=== PATIENT | female | born 1990 | race Caucasian/White ===

== ENCOUNTER 2023-10-12 21:45 | Inpatient (IN) ==
[2023-10-12] MEDS ORDERED: PIPERACILLIN/TAZOBACTAM 4.5 GM/100 ML BAG IV ONE (22:00)
[2023-10-12] MEDS ORDERED: VANCOMYCIN CONSULT ACTIVE PRN (22:00)
[2023-10-12] MEDS ORDERED: SODIUM CHLORIDE 0.9% 1,000 ML IV ONE (22:00)
[2023-10-12] MEDS ORDERED: VANCOMYCIN HCL 1,250 MG in SODIUM CHLORIDE 0.9% 500 ML IV ONE (22:00)
--- NOTE | 2023-10-12 22:03 | Emergency Department Note ---
History of Present Illness General Chief complaint: Infection Stated complaint: LT HAND INFECTION Time Seen by Provider: 10/12/23 21:53 History of Present Illness Maximum Pain Intensity: 5 This 32-year-old female that uses meth and smokes presents to the ER for left hand infection. Patient states yesterday she was cut by a cardboard box to the fourth digit and now the whole hand is red and swollen and painful. She cannot fully extend or bend the fourth finger. Tetanus is current. Patient denies chest pain, dyspnea, fevers, numbness, tingling. Home Medications Medication Instructions Recorded Confirmed Type No Known Home Medications 10/12/23 10/12/23 History Allergies Allergy/AdvReac Type Severity Reaction Status Date / Time No Known Allergies Allergy Verified 10/12/23 22:37 Past Med/Surg History Social History Smoking Status: Current every day smoker Tobacco Type: Cigarettes Preferred Language: Bulgarian Feels Safe at Home: Yes Review of Systems A total of 10 systems reviewed and were otherwise negative Physical Exam Vital Signs Vital Signs - 24 hr 10/12/23 21:49 10/12/23 23:45 10/12/23 23:46 Temperature 37 C Temperature Source Temporal Artery Scan Pulse Rate 118 H 100 H Pulse Rate [Apical] 99 H Pulse Rate from SpO2 Sensor Pulse Rhythm [Apical] Regular Pulse Strength [Apical] Normal Respiratory Rate 16 20 14 Respiratory Effort / Characteristics Non-Labored Spontaneous Respiratory Depth Normal Normal Respiratory Pattern Regular Blood Pressure 148/81 H Blood Pressure [Right Arm] 130/85 Blood Pressure Mean 103 Blood Pressure Mean [Right Arm] 100 Blood Pressure Position [Right Arm] Lying Pulse Oximetry 99 Oxygen Delivery Method Room Air Sepsis Recent Fever Within 48 Hours No Sepsis New/Unexplained Change in Mental Status No Sepsis Action Taken by Nursing No Action Required 10/12/23 23:49 10/13/23 00:15 10/13/23 00:16 Temperature Temperature Source Pulse Rate 93 H 103 H Pulse Rate [Apical] 91 H Pulse Rate from SpO2 Sensor Pulse Rhythm [Apical] Pulse Strength [Apical] Respiratory Rate 22 16 Respiratory Effort / Characteristics Non-Labored Spontaneous Respiratory Depth Normal Respiratory Pattern Regular Blood Pressure Blood Pressure [Right Arm] 138/96 Blood Pressure Mean Blood Pressure Mean [Right Arm] 110 Blood Pressure Position [Right Arm] Lying Pulse Oximetry 100 Oxygen Delivery Method Room Air Sepsis Recent Fever Within 48 Hours Sepsis New/Unexplained Change in Mental Status Sepsis Action Taken by Nursing 10/13/23 00:16 10/13/23 00:20 10/13/23 00:30 Temperature Temperature Source Pulse Rate 94 H 104 H Pulse Rate [Apical] Pulse Rate from SpO2 Sensor 94 H 105 H Pulse Rhythm [Apical] Pulse Strength [Apical] Respiratory Rate 20 16 Respiratory Effort / Characteristics Respiratory Depth Respiratory Pattern Blood Pressure 138/96 Blood Pressure [Right Arm] Blood Pressure Mean 109 Blood Pressure Mean [Right Arm] Blood Pressure Position [Right Arm] Pulse Oximetry 100 100 Oxygen Delivery Method Sepsis Recent Fever Within 48 Hours Sepsis New/Unexplained Change in Mental Status Sepsis Action Taken by Nursing 10/13/23 00:40 10/13/23 00:50 10/13/23 01:00 Temperature Temperature Source Pulse Rate 96 H 99 H 103 H Pulse Rate [Apical] Pulse Rate from SpO2 Sensor 97 H 98 H 104 H Pulse Rhythm [Apical] Pulse Strength [Apical] Respiratory Rate 18 19 19 Respiratory Effort / Characteristics Respiratory Depth Respiratory Pattern Blood Pressure 141/94 H Blood Pressure [Right Arm] Blood Pressure Mean 109 Blood Pressure Mean [Right Arm] Blood Pressure Position [Right Arm] Pulse Oximetry 100 100 100 Oxygen Delivery Method Sepsis Recent Fever Within 48 Hours Sepsis New/Unexplained Change in Mental Status Sepsis Action Taken by Nursing 10/13/23 01:05 10/13/23 01:05 10/13/23 01:10 Temperature Temperature Source Pulse Rate 103 H 101 H Pulse Rate [Apical] Pulse Rate from SpO2 Sensor 102 H 100 H Pulse Rhythm [Apical] Pulse Strength [Apical] Respiratory Rate 16 16 Respiratory Effort / Characteristics Respiratory Depth Respiratory Pattern Blood Pressure 141/94 H Blood Pressure [Right Arm] Blood Pressure Mean 107 Blood Pressure Mean [Right Arm] Blood Pressure Position [Right Arm] Pulse Oximetry 100 100 Oxygen Delivery Method Sepsis Recent Fever Within 48 Hours Sepsis New/Unexplained Change in Mental Status Sepsis Action Taken by Nursing 10/13/23 01:20 10/13/23 01:30 10/13/23 01:40 Temperature Temperature Source Pulse Rate 100 H 104 H 106 H Pulse Rate [Apical] Pulse Rate from SpO2 Sensor 101 H 103 H 107 H Pulse Rhythm [Apical] Pulse Strength [Apical] Respiratory Rate 17 19 18 Respiratory Effort / Characteristics Respiratory Depth Respiratory Pattern Blood Pressure Blood Pressure [Right Arm] Blood Pressure Mean Blood Pressure Mean [Right Arm] Blood Pressure Position [Right Arm] Pulse Oximetry 100 100 99 Oxygen Delivery Method Sepsis Recent Fever Within 48 Hours Sepsis New/Unexplained Change in Mental Status Sepsis Action Taken by Nursing VITALS: Vitals are noted on the nurse's note and reviewed by myself. Vital signs stable. GENERAL: White female with tobacco odor, in no acute distress, nondiaphoretic, well-developed well-nourished. SKIN: Capillary reflex less than [address] christensen to both arms. Left hand erythematous and edematous with open abrasion to the left fourth digit wound culture taken and sent. Patient cannot fully extend the left fourth finger or bend it all the way. All of the fingers have full range of motion. No lymphangitis. HEENT: Normocephalic. PERRLA. EOMI. Nares patent. Mucous membranes moist. Neck is supple without nuchal rigidity. HEART: Regular rate and rhythm LUNGS: Clear to auscultation bilaterally without wheezes, rales or rhonchi. No retractions or accessory muscle use. ABDOMEN: Positive bowel sounds x 4. Normal tympanic percussion. Soft, nontender, without masses or organomegaly. Batista sign negative. No guarding or rebound tenderness. MUSCULOSKELETAL: No gross musculoskeletal defects. Left hand erythematous and edematous with open abrasion to the left fourth digit with wound culture taken and sent. Patient cannot fully extend the left fourth finger or bend it all the way. All of the fingers have full range of motion. No lymphangitis. NEURO: Patient was alert and oriented to person place and time. Normal sensation to light and sharp touch. No focal neurological deficits. Course Administered Medications Discontinued Medications Vancomycin HCl 1,250 mg/ (Sodium Chloride) 525 mls @ 200 mls/hr IV NOW ONE Stop: 10/13/23 00:37 Last Infusion: 10/13/23 02:55 Dose: Infused Documented By: Admin: 10/12/23 23:38 Dose: 200 mls/hr Documented By: DELICIA Sodium Chloride (Nss) 1,000 mls @ 999 mls/hr IV .Q1H1M ONE Stop: 10/12/23 23:00 Last Infusion: 10/13/23 00:14 Dose: Infused Documented By: Admin: 10/12/23 23:13 Dose: 999 mls/hr Documented By: DELICIA Nicotine (Nicotine 21 Mg/24 Hr Tdsy) 21 mg TD NOW STA Stop: 10/12/23 23:44 Last Admin: 10/12/23 23:45 Dose: 21 mg Documented By: DELICIA Medical Decision Making Medical Records Attestation: I reviewed the patient's medical records. Home Medications Current Medication List: was personally reviewed by me Laboratory Data Attestation: I reviewed the patient's lab results. 10/12/23 23:23 10/12/23 23:23 Lab Results 10/12/23 10/12/23 Range/Units 23:23 23:30 WBC 12.26 H (4.8-10.8) K/ul RBC 4.47 (4.20-5.40) M/uL Hgb 12.1 (12.0-16.0) g/dl Hct 37.1 (37.0-47.0) % MCV 83.0 (80.0-100.0) fL MCH 27.1 (25.0-34.0) pg MCHC 32.6 (32.0-36.0) g/dL RDW Std Deviation 45.4 (36.4-46.3) fL RDW Coeff of Amarilys 15.0 H (11.5-14.5) % Plt Count 226 (130-400) K/uL MPV 11.6 (9.4-12.4) fL Immature Gran % (Auto) 0.4 % Neut % (Auto) 80.3 % Lymph % (Auto) 9.5 % [place] % (Auto) 6.6 % Eos % (Auto) 2.5 % Baso % (Auto) 0.7 % Neut # (Auto) 9.84 H (1.40-6.50) K/uL Lymph # (Auto) 1.16 L (1.20-3.40) K/uL [place] # (Auto) 0.81 H (0.11-0.59) K/uL Eos # (Auto) 0.31 (0.00-0.50) K/uL Baso # (Auto) 0.09 (0.00-0.20) K/uL Immature Gran # (Auto) 0.05 (0.01-0.20) K/uL ESR 29 H (0-20) mm/hr Sodium 136 (136-145) mmol/L Potassium 3.8 (3.5-5.1) mmol/L Chloride 105 (98-107) mmol/L Carbon Dioxide 25 (21-32) mmol/L Anion Gap 6 (3-11) BUN 11 (6-23) mg/dl Creatinine 0.70 (0.6-1.2) mg/dl Est Cr Clr Drug Dosing 99.6 ml/min Est GFR ( Amer) 131.0 ml/min Est GFR (Non-Af Amer) 113.0 ml/min BUN/Creatinine Ratio 15.7 (10-20) Glucose 112 H (70-99(Fasting)) mg/dl Lactate 1.3 (0.4-2.0) mmol/L Calcium 9.1 (8.6-10.3) mg/dl Magnesium 1.9 (1.7-2.4) mg/dl Total Bilirubin 0.6 (0.2-1.0) mg/dl Direct Bilirubin 0.1 (0-0.2) mg/dl AST 14 (13-39) U/L ALT 14 (7-52) U/L Alkaline Phosphatase 86 (34-104) U/L Total Creatine Kinase 80 (26-192) U/L C-Reactive Protein 5.74 H (0-0.5) mg/dl Total Protein 6.9 (6.0-8.3) gm/dl Albumin 4.0 (3.4-5.0) gm/dl Procalcitonin < 0.05 (0-0.5) ng/ml Imaging Data Attestation: I personally reviewed and interpreted this imaging study as follows: Radiologist's Impression: Extremity Venous Study 10/12/23 22:03 Exam(s): US VENOUS LEFT UPPER EXTREMITY EXAM: US Duplex Left Upper Extremity Veins CLINICAL HISTORY: Reason for exam: pain/swelling TECHNIQUE: Real-time duplex ultrasound scan of the left upper extremity veins integrating B-mode two-dimensional vascular structure, Doppler spectral analysis, color flow Doppler imaging and compression. COMPARISON: No relevant prior studies available. FINDINGS: Deep veins: Unremarkable. No DVT in the internal jugular, subclavian, axillary, or brachial veins. The veins demonstrate normal color flow, are normally compressible, with normal phasic flow and/or augmentation response. Superficial veins: Unremarkable. No thrombus in the visualized basilic and cephalic veins. Soft tissues: No acute findings. IMPRESSION: Negative left upper extremity duplex venous ultrasound. Electronically signed by: Rayshawn Florez MD 10/13/23 02:17 AM MDM Narrative Prior records reviewed and summarized as above. Triage Nursing notes reviewed. Additional history obtained from family. The patient's history was concerning for swelling and redness of the skin. Differential diagnosis: Etiologies such as osteomyelitis, tendon infection, cellulitis, abscess, MRSA infection, DVT, necrotizing fasciitis, dermatitis, drug eruption, as well as others were entertained.. Physical examination: The physical examination was consistent with extensive cellulitis to the left hand with concerns for possible tendon infection to the fourth finger ER treatment provided: Zosyn, vancomycin, IV fluids Wound culture taken and sent by myself On reassessment the patient felt better. Diagnostics interpreted by me: EKG ordered for tachycardia EKG: Normal sinus, normal intervals, no acute ST-T changes. Impression sinus tachycardia 102 independently interpreted by myself I think arrhythmia is unlikely. EKG shows normal sinus rhythm with no interval abnormalities such as QT prolongation or WPW. There are no findings to suggest Brugada syndrome. Cardiac monitoring in the emergency department reveals no tachycardic or bradycardic dysrhythmia. Hypertrophic cardiomyopathy was considered but there are no clear historical elements pointing toward this. EKG is not suggestive. The QRS voltage is not extremely large and there are no suggestive Q waves. The labs Independently Interpreted by myself revealed leukocytosis, elevated inflammatory markers Negative lactic Blood cultures pending Finger wound culture pending Negative lactic Imaging studies: Hand x-ray with no fracture dislocation or foreign body, soft tissue swelling noted per my independent interpretation Ultrasound negative for DVT per my independent interpretation Consultation: A consultation was placed with the hospitalist. The case was discussed and diagnostics were reviewed. The patient was evaluated in the ER for further treatment. This appears to be extensive hand cellulitis with concerns of tendon involvement. Patient was started on broad-spectrum antibiotics. She has a history of IV drug abuse. Tetanus is reported as current. Medicine was consulted the case was discussed. Patient be admitted to the medical service. By the evaluation outlined above emergent etiologies such as abscess, necrotizing fasciitis, DVT, as well as others were deemed relatively unlikely. The pt informed about the findings as listed above. All questions were answered and pleased with the treatment. The chart was completed utilizing [employer] voice recognition software. Grammatical errors, random word insertions, pronoun errors, and incomplete sentences are an occassional consequence of this system due to software limitations, ambient noise, and hardware issues. Any formal questions or concerns about the content, text, or information contained within the body of this dictation should be directly addressed to the physician assistant customer service manager for clarification. Impression & Plan Cellulitis of hand, left Discharge Plan Visit Data Chief Complaint: Infection Stated Complaint: LT HAND INFECTION ED Provider: Shawn Saucedo ED Midlevel Provider: Jeniffer Zelaya Discharge Problem: Cellulitis of hand, left Patient Disposition: Admitted As Inpatient Condition: Fair Discharge Instructions Interventions: ED Discharge Assessment Last Done: 10/13/23 02:13
[2023-10-12] MEDS ORDERED: NICOTINE 21 MG/24 HR TDSY TD STA (23:43)
[2023-10-13 00:04] LABS: Basophils # (auto) 0.09 K/uL (0.00-0.20); Basophils % (auto) 0.7 %; Eosinophils # (auto) 0.31 K/uL (0.00-0.50); Eosinophils % (auto) 2.5 %; Hematocrit (blood only) 37.1 % (37.0-47.0); Hemoglobin 12.1 g/dl (12.0-16.0); Immature Granulocytes # (auto) 0.05 K/uL (0.01-0.20); Immature Granulocytes % (auto) 0.4 %; Lymphocytes # (auto) 1.16 K/uL (1.20-3.40); Lymphocytes % (auto) 9.5 %; Mean Corpuscular Hemoglobin 27.1 pg (25.0-34.0); Mean Corpuscular Hgb Conc 32.6 g/dL (32.0-36.0); Mean Platelet Volume 11.6 fL (9.4-12.4); Monocytes # (auto) 0.81 K/uL (0.11-0.59); Monocytes % (auto) 6.6 %; Neutrophils # (auto) 9.84 K/uL (1.40-6.50); Neutrophils % (auto) 80.3 %; Platelet Count 226 K/uL (130-400); RDW Standard Deviation 45.4 fL (36.4-46.3); Red Blood Count 4.47 M/uL (4.20-5.40); White Blood Count 12.26 K/ul (4.8-10.8)
[2023-10-13 00:10] LABS: BUN Creatinine Ratio 15.7 (10-20); Bilirubin Direct 0.1 mg/dl (0-0.2); Bilirubin,Total 0.6 mg/dl (0.2-1.0); C Reactive Protein 5.74 mg/dl (0-0.5); Calcium 9.1 mg/dl (8.6-10.3); Creatinine Clr Calc Pharmacy 99.6 ml/min; Magnesium 1.9 mg/dl (1.7-2.4); Potassium 3.8 mmol/L (3.5-5.1); Total Protein 6.9 gm/dl (6.0-8.3)
--- NOTE | 2023-10-13 01:45 | Emergency Department Note ---
ED Visit Note I was consulted by the Advanced Practice Provider, Elizabet Zelaya PA-C. I personally made/approved the management plan and take responsibility for the patient management. I performed a substantive portion of the visit. This includes the aspects of: -History/Physical/Personally seeing the patient -MDM -I independently interpreted the following studies:labs and radiographic studies .
--- NOTE | 2023-10-13 01:59 | History & Physical Report ---
Date of Service October 13, 2023 Assessment & Plan (1) Cellulitis of hand, left: Plan: 32-year-old female with no significant past medical history ongoing daily use of IV methamphetamines comes with left hand infection. Cellulitis of left hand Patient states use IV methamphetamines daily but denies any needlestick in that hand States had a cut from cardboard couple of days ago on the fourth digit Painful movements Empirically IV Vanco and IV Zosyn Pain control IV fluids N.p.o. for now Consult Ortho in a.m. IV drug abuse Ongoing with IV methamphetamines as per patient Needs counseling Monitor for any withdrawals DVT prophylax SCDs for now Disposition MedSur Full code History of Present Illness Chief Complaint: Left hand infection Primary Care Provider: NO PCP 32-year-old female with no significant past medical history ongoing daily use of IV methamphetamines comes with left hand infection. Patient states couple of days ago she cut from cardboard her left fourth digit and since yesterday left hand is swollen and painful. She is having painful movements of the left hand. Denies any fevers. Denies any chest pain or shortness of breath. Currently no headache. No blurred visions. No cough. Appetite is okay. No nausea vomiting. No abdominal pain. Normal bowel and bladder movements. No rash. Hemodynamics are stable. Past medical history. None Past surgical history. Denies any surgeries. Social history. Smokes 1 pack of cigarettes daily for more than 10 years. Denies alcohol. Does IV amphetamines daily Family history. Denies any family history Allergies Allergy/AdvReac Type Severity Reaction Status Date / Time No Known Allergies Allergy Verified 10/12/23 22:37 Home Medications Medication Instructions Recorded Confirmed Type No Known Home Medications 10/12/23 10/12/23 History Past Med/Surg History Social History Smoking Status: Current every day smoker Tobacco Type: Cigarettes Cigarettes Per Day: 20 cigarettes (a pack a day).; Second Hand Exposure: Yes; Do You Dip or Chew Tobacco: No; Tobacco Cessation Education Requested by Patient: No Hx Alcohol Use: No Hx Substance Use: Yes Last Used Substance: Days (ago) Last Used Substance Other:: Used methamphetamine yesterday (10/12/23). Preferred Language: Nicaraguan Communication Ability: Effective [employer] Required: No Beliefs That Will Affect Care: None Current Living Situation: Other Current Living Situation Comment: Lives with Friend. Other Information That Helps Us Care for You: No Feels Safe at Home: Declines to Answer Safety Concerns: Feels Safe At This Time Assistive Devices: Hospital Bed Review of Systems Review of Systems: All systems reviewed & are unremarkable except as noted in HPI & below Physical Exam Physical Exam: General- Not in distress Head- atraumatic Eyes- PERRL. ENT- oropharynx clear Neck- supple, no JVD. Lungs- clear to auscultation , no wheezing or crackles. Heart- regular rhythm; no murmur, no gallop. Abdomen- normal bowel sounds, soft, nontender, no distension. Extremities- left hand is swollena nd erythematous and painful movements. fourth digit small cut seen. Neuro- alert, oriented x 3; PERRL, no facial palsy; no dysarthria; moves extremities. Results & Data Results & Data Vital Signs (Past 12 Hours) Vital Signs Temp Pulse Pulse Resp BP BP Pulse Ox 10/13/23 01:00 103 H 19 141/94 H 100 10/13/23 00:50 99 H 19 100 10/13/23 00:40 96 H 18 100 10/13/23 00:30 104 H 16 100 10/13/23 00:20 94 H 20 100 10/13/23 00:16 138/96 10/13/23 00:16 103 H 16 10/13/23 00:15 91 H 22 138/96 100 10/12/23 23:49 93 H 10/12/23 23:46 100 H 14 10/12/23 23:45 99 H 20 130/85 10/12/23 21:49 37 C 118 H 16 148/81 H 99 O2 Del Method 10/13/23 01:00 10/13/23 00:50 10/13/23 00:40 10/13/23 00:30 10/13/23 00:20 10/13/23 00:16 10/13/23 00:16 10/13/23 00:15 Room Air 10/12/23 23:49 10/12/23 23:46 10/12/23 23:45 10/12/23 21:49 Room Air Diagnostic Findings Laboratory Results WBC 12.26 K/ul (4.8-10.8) H 10/12/23 23:23 RBC 4.47 M/uL (4.20-5.40) 10/12/23 23:23 Hgb 12.1 g/dl (12.0-16.0) 10/12/23 23: Hct 37.1 % (37.0-47.0) 10/12/23 23:23 MCV 83.0 fL (80.0-100.0) 10/12/23 23: MCH 27.1 pg (25.0-34.0) 10/12/23 23: MCHC 32.6 g/dL (32.0-36.0) 10/12/23 23: RDW Std Deviation 45.4 fL (36.4-46.3) 10/12/23 23: RDW Coeff of Amarilys 15.0 % (11.5-14.5) H 10/12/23 23: Plt Count 226 K/uL (130-400) 10/12/23 23: MPV 11.6 fL (9.4-12.4) 10/12/23 23: Immature Gran % (Auto) 0.4 % 10/12/23 23: Neut % (Auto) 80.3 % 10/12/23 23: Lymph % (Auto) 9.5 % 10/12/23 23: [place] % (Auto) 6.6 % 10/12/23 23: Eos % (Auto) 2.5 % 10/12/23 23: Baso % (Auto) 0.7 % 10/12/23 23: Neut # (Auto) 9.84 K/uL (1.40-6.50) H 10/12/23 23:23 Lymph # (Auto) 1.16 K/uL (1.20-3.40) L 10/12/23 23: [place] # (Auto) 0.81 K/uL (0.11-0.59) H 10/12/23 23: Eos # (Auto) 0.31 K/uL (0.00-0.50) 10/12/23 23:23 Baso # (Auto) 0.09 K/uL (0.00-0.20) 10/12/23 23: Immature Gran # (Auto) 0.05 K/uL (0.01-0.20) 10/12/23 23:23 ESR 29 mm/hr (0-20) H 10/12/23 23:23 Sodium 136 mmol/L (136-145) 10/12/23 23:23 Potassium 3.8 mmol/L (3.5-5.1) 10/12/23 23:23 Chloride 105 mmol/L (98-107) 10/12/23 23:23 Carbon Dioxide 25 mmol/L (21-32) 10/12/23 23:23 Anion Gap 6 (3-11) 10/12/23 23:23 BUN 11 mg/dl (6-23) 10/12/23 23:23 Creatinine 0.70 mg/dl (0.6-1.2) 10/12/23 23: Est Cr Clr Drug Dosing 99.6 ml/min 10/12/23 23:23 Est GFR ( Amer) 131.0 ml/min 10/12/23 23:23 Est GFR (Non-Af Amer) 113.0 ml/min 10/12/23 23:23 BUN/Creatinine Ratio 15.7 (10-20) 10/12/23 23:23 Glucose 112 mg/dl (70-99(Fasting)) H 10/12/23 23:23 Lactate 1.3 mmol/L (0.4-2.0) 10/12/23 23:30 Calcium 9.1 mg/dl (8.6-10.3) 10/12/23 23:23 Magnesium 1.9 mg/dl (1.7-2.4) 10/12/23 23:23 Total Bilirubin 0.6 mg/dl (0.2-1.0) 10/12/23 23:23 Direct Bilirubin 0.1 mg/dl (0-0.2) 10/12/23 23:23 AST 14 U/L (13-39) 10/12/23 23:23 ALT 14 U/L (7-52) 10/12/23 23:23 Alkaline Phosphatase 86 U/L (34-104) 10/12/23 23:23 Total Creatine Kinase 80 U/L (26-192) 10/12/23 23:23 C-Reactive Protein 5.74 mg/dl (0-0.5) H 11/24/23 23:23 Total Protein 6.9 gm/dl (6.0-8.3) 10/12/23 23:23 Albumin 4.0 gm/dl (3.4-5.0) 10/12/23 23:23 Procalcitonin < 0.05 ng/ml (0-0.5) 10/12/23 23:23 Code Status & VTE Plan VTE Prophylaxis Plan VTE Prophylaxis will be ordered: Yes
--- NOTE | 2023-10-13 02:18 | Ultrasound Report ---
Exam(s): US VENOUS LEFT UPPER EXTREMITY EXAM: US Duplex Left Upper Extremity Veins CLINICAL HISTORY: Reason for exam: pain/swelling TECHNIQUE: Real-time duplex ultrasound scan of the left upper extremity veins integrating B-mode two-dimensional vascular structure, Doppler spectral analysis, color flow Doppler imaging and compression. COMPARISON: No relevant prior studies available. FINDINGS: Deep veins: Unremarkable. No DVT in the internal jugular, subclavian, axillary, or brachial veins. The veins demonstrate normal color flow, are normally compressible, with normal phasic flow and/or augmentation response. Superficial veins: Unremarkable. No thrombus in the visualized basilic and cephalic veins. Soft tissues: No acute findings. IMPRESSION: Negative left upper extremity duplex venous ultrasound. Electronically signed by: Rayshawn Florez MD 10/13/23 02:17 AM
[2023-10-13] MEDS ORDERED: HYDROmorphone INJ 0.5 MG/0.5 ML SYR IV PRN (02:27)
[2023-10-13] MEDS ORDERED: SODIUM CHLORIDE 0.9% 1,000 ML IV SCH (02:27)
[2023-10-13] MEDS ORDERED: POLYETHYLENE (MIRALAX) 17 GM PACK PO PRN (02:27)
[2023-10-13] MEDS ORDERED: PIPERACILLIN/TAZOBACTAM 4.5 GM/100 ML BAG IV ONE (03:00)
[2023-10-13 03:11] LABS: Appearance Urine Clear (Clear); Bilirubin Urine Negative (Negative); Blood Urine Negative (Negative); Color Urine Yellow; Glucose Urine UA Negative (Negative); Ketones Urine Negative (Negative); Leukocyte Esterase Urine Negative (Negative); Nitrite Urine Negative (Negative); Protein Urine Negative (Negative); Specific Gravity Urine 1.022 (1.000-1.030); Urobilinogen Urine Negative (Negative); pH Urine 6.5 (4.5-7.5)
[2023-10-13 04:13] LABS: Amphetamines+Metham, Urine Pos (Neg); Barbiturates, Urine Neg (Neg); Benzodiazepine, Urine Neg (Neg); Cocaine, Urine Pos (Neg); MDMA (Ecstacy), Urine Pos (Neg); Marijuana, Urine Neg (Neg); Methadone, Urine Neg (Neg); Opiate, Urine Neg (Neg); Phencyclidine, Urine Neg (Neg)
[2023-10-13] MEDS: VANCOMYCIN HCL 1,250 MG in SODIUM CHLORIDE 0.9% 250 ML IV SCH ×2 (06:13→19:00)
--- NOTE | 2023-10-13 07:48 | XRay Report ---
XR hand LT min 3V routine CLINICAL HISTORY: IVDU, infx, 4th finger the worst. Left hand swelling. COMPARISON STUDY: None. FINDINGS: Soft tissue swelling within the left hand most pronounced within the fourth finger. No radi opaque foreign bodies. No soft tissue gas identified. No bony destructive changes. No fracture or dis location within the left hand. IMPRESSION: 1. Diffuse soft tissue swelling within the left hand. 2. No underlying bony abnormality. ACT 112: Negative or not required by law. Electronically signed by: Andrade Fisher M.D. 10/13/2023 7:47 AM
--- NOTE | 2023-10-13 08:00 | Electrocardiogram Report ---
Test Reason : Blood Pressure : / mmHG Vent. Rate : 102 BPM Atrial Rate : 102 BPM P-R Int : 122 ms QRS Dur : 078 ms QT Int : 350 ms P-R-T Axes : 058 076 037 degrees QTc Int : 456 ms Sinus tachycardia Otherwise normal ECG No previous ECGs available Confirmed by Oskar Rivera ([id number]) on 10/13/2023 8:00:23 AM Referred By: REFERRED SELF Confirmed By:Oskar Rivera
[2023-10-13] MEDS: PIPERACILLIN/TAZOBACTAM 4.5 GM in DEXTROSE 5% MINI-B 100 ML IV SCH ×2 (08:17→16:35)
[2023-10-13] MEDS ORDERED: NICOTINE POLACRILEX 2 MG GUM MT PRN (10:16)
--- NOTE | 2023-10-13 10:53 | Orthopedic Consultation ---
Date of Consultation October 13, 2023 Assessment & Plan (1) Cellulitis of hand, left: Patient's history and exam is very consistent with cellulitis of the left ring finger extending into the left hand secondary to a superficial laceration. No evidence of abscess, PIP joint septic arthritis, or infectious flexor tenosynovitis. I therefore would not recommend any urgent surgical intervention at this point. Would recommend continued IV antibiotics and monitoring for resolution of the cellulitis. History of Present Illness Reason for Consultation: Left hand infection Attending Physician: Juvenal Dixon MD History of Present Illness Ms. Trujillo is a 32-year-old [id number] female who reports that she lacerated the dorsalradial aspect of her left ring finger PIP joint with a piece of cardboard a few days ago. She started developing swelling in the area over the past 2 days with associated difficulty in range of motion of the ring finger. She is an IV drug abuser, but normally injects into her arms. She has injected into her left hand in the past, but not recently. She was admitted yesterday and is receiving her third dose of IV antibiotics. She notes significant improvement in her hand pain, swelling, and motion already with the antibiotics. Allergies Allergy/AdvReac Type Severity Reaction Status Date / Time No Known Allergies Allergy Verified 10/12/23 22:37 Home Medications Medication Instructions Recorded Confirmed Type No Known Home Medications 10/12/23 10/12/23 History Patient History Social History Smoking Status: Current every day smoker Tobacco Type: Cigarettes Cigarettes Per Day: 20 cigarettes (a pack a day).; Second Hand Exposure: Yes; Do You Dip or Chew Tobacco: No; Tobacco Cessation Education Requested by Patient: No Hx Alcohol Use: No Hx Substance Use: Yes Last Used Substance: Days (ago) Last Used Substance Other:: Used methamphetamine yesterday (10/12/23). 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 Other Information That Helps Us Care for You: No Feels Safe at Home: Declines to Answer Safety Concerns: Feels Safe At This Time Assistive Devices: Hospital Bed Physical Exam Physical Exam: Examination of the left hand and ring finger reveals a small superficial laceration over the dorsalradial aspect of the ring finger PIP joint. It is longitudinally oriented and about 1 cm in length. There is some dried, crusty s erous drainage along the laceration line, but no active or expressible drainage. No purulence. No palpable fluid collections. Mild surrounding erythema and swelling diffusely in the digit and extending into the dorsal hand. No significant swelling or tenderness palpation along the flexor tendon sheath volarly. She has fairly good PIP joint motion without significant pain. Results & Data Vital Signs (Past 12 Hours) Vital Signs Temp Pulse Pulse Pulse Resp BP BP 10/13/23 08:11 36.7 C 93 H 16 113/71 10/13/23 02:27 36.9 C 102 H 18 118/78 10/13/23 02:22 10/13/23 02:22 10/13/23 02:22 36.9 C 102 H 18 118/78 10/13/23 02:00 138/88 10/13/23 02:00 101 H 17 10/13/23 01:50 101 H 18 10/13/23 01:40 106 H 18 10/13/23 01:30 104 H 19 10/13/23 01:20 100 H 17 10/13/23 01:10 101 H 16 10/13/23 01:05 141/94 H 10/13/23 01:05 103 H 16 10/13/23 01:00 103 H 19 141/94 H 10/13/23 00:50 99 H 19 10/13/23 00:40 96 H 18 10/13/23 00:30 104 H 16 10/13/23 00:20 94 H 20 10/13/23 00:16 138/96 10/13/23 00:16 103 H 16 10/13/23 00:15 91 H 22 138/96 10/12/23 23:49 93 H 10/12/23 23:46 100 H 14 10/12/23 23:45 99 H 20 130/85 Pulse Ox O2 Del Method 10/13/23 08:11 98 Room Air 10/13/23 02:27 99 Room Air 10/13/23 02:22 Room Air 10/13/23 02:22 Room Air 10/13/23 02:22 99 Room Air 10/13/23 02:00 10/13/23 02:00 100 10/13/23 01:50 100 10/13/23 01:40 99 10/13/23 01:30 100 10/13/23 01:20 100 10/13/23 01:10 100 10/13/23 01:05 10/13/23 01:05 100 10/13/23 01:00 100 10/13/23 00:50 100 10/13/23 00:40 100 10/13/23 00:30 100 10/13/23 00:20 100 10/13/23 00:16 10/13/23 00:16 10/13/23 00:15 100 Room Air 10/12/23 23:49 10/12/23 23:46 10/12/23 23:45 Laboratory Results Labs 10/12/23: WBC - 12.26 ESR - 29 CRP - 5.74 Drug screen: Methamphetamine, MDMA, cocaine positive Diagnostic Findings Left hand x-rays from 10/12/23 were independently interpreted by me. They are largely unremarkable. No fractures or advanced arthritis. Diffuse soft tissue swelling in the hand is noted, mildly increased in the ring finger compared to the adjacent digits. No osteolysis is seen. No radiopaque foreign bodies.
--- NOTE | 2023-10-13 11:41 | Pharmacy Report ---
Pharmacy PK ABX Note - Date of Service October 13, 2023 - Assessment and Plan Assessment 32 year old F receiving vancomycin/zosyn for treatment of left hand cellulitis. Patient has a history of intravenous drug use. Pertinent microbiologic data includes: Blood cultures pending, finger culture pending. No previous culture data. Mild leukocytosis, afebrile. Plan Vancomycin * Loading dose: 1250 mg IV x 1 * Maintenance dose: 1250 mg IV every 12 hours * Regimen is predicted to achieve target AUC/SHAWNEE of 400-600 mg/L.hr * Random level ordered for 10/14 @ 1200 Pharmacy will continue to follow and will adjust dose/frequency as necessary. Thank you. Pharmacy has transitioned to AUC monitoring for vancomycin. AUC/SHAWNEE is the preferred PK/PD target and is associated with decreased risk of nephrotoxicity compared to traditional trough targets.
--- NOTE | 2023-10-13 13:30 | Communication Note ---
Date of Service: October 13, 2023 Patient seen and examined at bedside. She reports that the swelling has improved. She is able to bend her fingers. No other complaints. Orthopedic evaluation was done; no need for surgical intervention. Diet resumed. Fluid discontinued. Continue IV antibiotics
[2023-10-13 14:45] LABS: A calco-baum cmplx NotReported Not Detected (NotDetected); Bact fragilis Not Reported Not Detected (NotDetected); Blood Culture Id Panel See PCR Comment (NotDetected); C auris Not Reported Not Detected (NotDetected); Calbicans Not Reported Not Detected (NotDetected); Candida glabrata Not Reported Not Detected (NotDetected); Candida krusei Not Reported Not Detected (NotDetected); Cneoformans/gatti Not Reported Not Detected (NotDetected); Cparapsilosis Not Reported Not Detected (NotDetected); E cloacae compx Not Reported Not Detected (NotDetected); Efaecalis Not Reported Not Detected (NotDetected); Efaecium Not Reported Not Detected (NotDetected); Enterobacterales Not Reported Not Detected (NotDetected); Escherichia coli Not Reported Not Detected (NotDetected); H influenzae Not Reported Not Detected (NotDetected); K aerogenes Not Reported Not Detected (NotDetected); Koxytoca Not Reported Not Detected (NotDetected); Kpneumoniae grp Not Reported Not Detected (NotDetected); Lmonocyt Not Reported Not Detected (NotDetected); N meningitidis Not Reported Not Detected (NotDetected); P aeruginosa Not Reported Not Detected (NotDetected); Proteus spp Not Reported Not Detected (NotDetected); Salmonella spp Not Reported Not Detected (NotDetected); Smarcescens Not Reported Not Detected (NotDetected); Staph lugdunensis Not Reported Not Detected (NotDetected); Staph spp. Not Reported DETECTED (NotDetected); Staphaureus Not Reported DETECTED (NotDetected); Staphepi Not Reported Not Detected (NotDetected); Staphylococcus spp. DETECTED (NotDetected); Stenmaltophilia Not Reported Not Detected (NotDetected); Strep agal(GrpB) Not Reported Not Detected (NotDetected); Strep pneum Not Reported Not Detected (NotDetected); Strep pyog (GrpA) Not Reported Not Detected (NotDetected); Strep spp Not Reported Not Detected (NotDetected); mecAC+MREJ Resistant Gene MRSA Not Detected (NotDetected)
[2023-10-13] MEDS: NICOTINE 21 MG/24 HR TDSY TD SCH (15:02)
[2023-10-13] MEDS: ACETAMINOPHEN 325 MG TAB PO PRN (20:57)
[2023-10-14] MEDS: PIPERACILLIN/TAZOBACTAM 4.5 GM in DEXTROSE 5% MINI-B 100 ML IV SCH ×3 (00:24→16:31)
[2023-10-14 03:32] LABS: HBSAG NON-REACTIVE (NON-REACTIVE); Hepatitis A Antibody IgM NON-REACTIVE (NON-REACTIVE); Hepatitis B Core Antibody IgM NON-REACTIVE (NON-REACTIVE)
[2023-10-14] MEDS: VANCOMYCIN HCL 1,250 MG in SODIUM CHLORIDE 0.9% 250 ML IV SCH ×2 (05:16→18:26)
[2023-10-14] MEDS: NICOTINE 21 MG/24 HR TDSY TD SCH (08:23)
--- NOTE | 2023-10-14 10:37 | Orthopedic Progress Note ---
Date of Service October 14, 2023 Assessment & Plan (1) Cellulitis of hand, left: Plan: Patient's history and exam is very consistent with cellulitis of the left ring finger extending into the left hand secondary to a superficial laceration. No evidence of abscess, PIP joint septic arthritis, or infectious flexor tenosynovitis. The patient continues to make progress with IV antibiotics. No surgical intervention will be needed at this time. Would recommend continued IV antibiotics and monitoring for resolution of the cellulitis. Orthopedics will sign off at this time. The patient may follow-up on an as- needed basis or we may be reconsulted if her symptoms worsen. Admission and Anticipated Discharge Date Admission Date: October 13, 2023 Supervising Physician Co-Signing Physician Notes Patient seen and examined. Agree with JENNYFER Cueva's note as above. She is showing significant improvement over the past 24 hours. She has significant improvement in erythema, swelling, pain, and range of motion. She still has some mild swelling and erythema directly around the previous laceration site. I think she would likely benefit from another day of IV antibiotics, then likely transition to oral antibiotics. She does not require any surgical intervention for this. Orthopedics will sign off at this point. Subjective Patient feels she is doing much better today. Improvement in the hand pain and swelling. She has had increased range of motion of the ring finger. Physical Exam Constitutional: WD/WN, vitals as above no acute distress Musculoskeletal: Extremities: + hand abnormality Left (Ring finger: Improvement in erythema. Healing laceration at the radial aspect of the finger near the PIP joint. No streaking. Flexion to approximately 2 cm from the palm.) Neurologic: normal touch/pain/proprioception Psychiatric: A+Ox3, euthymic affect Speech: normal rate/rhythm/volume of speech Results & Data Vital Signs (Past 12 Hours) Vital Signs Temp Pulse Resp BP Pulse Ox O2 Del Method 10/14/23 07:52 Room Air 10/14/23 07:20 36.7 C 96 H 16 117/80 99 Room Air Laboratory Results Spec: [id number] Collected: 10/12/23 Received: 10/12/[address]: Jeniffer Zelaya PA-C Source: Finger OV Order: Ordered: Surf Wnd Cul/Sm Procedure Result Verified Site Gram Stain Final 10/13/23 Gram Stain Result Few WBCs Seen Many Gram Positive Cocci Rare Gram Positive Bacilli Surface Wound Culture Preliminary 10/14/23 Organism 1 Staphylococcus species Quantity Many Sens Sensitivities to Follow
[2023-10-14 13:22] LABS: Basophils % (auto) 1.8 %; Eosinophils % (auto) 7.2 %; Hemoglobin 13.2 g/dl (12.0-16.0); Immature Granulocytes # (auto) 0.01 K/uL (0.01-0.20); Immature Granulocytes % (auto) 0.2 %; Lymphocytes % (auto) 21.6 %; Mean Corpuscular Hemoglobin 27.2 pg (25.0-34.0); Mean Corpuscular Hgb Conc 32.2 g/dL (32.0-36.0); Mean Corpuscular Volume 84.4 fL (80.0-100.0); Mean Platelet Volume 11.3 fL (9.4-12.4); Monocytes # (auto) 0.52 K/uL (0.11-0.59); Monocytes % (auto) 9.4 %; Neutrophils # (auto) 3.33 K/uL (1.40-6.50); Neutrophils % (auto) 59.8 %; Platelet Count 260 K/uL (130-400); RDW Standard Deviation 45.6 fL (36.4-46.3); Red Blood Count 4.86 M/uL (4.20-5.40); White Blood Count 5.56 K/ul (4.8-10.8)
[2023-10-14 14:06] LABS: Calcium 9.2 mg/dl (8.6-10.3); Magnesium 1.8 mg/dl (1.7-2.4); Potassium 3.9 mmol/L (3.5-5.1)
[2023-10-14 14:12] LABS: BUN Creatinine Ratio 11.1 (10-20); Creatinine Clr Calc Pharmacy 79.4 ml/min; Est GFR (African American) 96.7 ml/min; Est GFR (Non-African American) 83.4 ml/min
--- NOTE | 2023-10-14 14:44 | Pharmacy Report ---
Pharmacy PK ABX Note - Date of Service October 14, 2023 - Assessment and Plan Assessment 10/14: Blood cultures 4/4 positive for MSSA. Finger culture growing staph species (preliminary). Repeat blood cultures pending. ID consulted. Patient continues on vancomycin/zosyn for now. Possible de-escalation. Random level ordered for today predicts therapeutic dosing, will continue current dosing. WBC has normalized but patient did have a fever overnight. 10/13 32 year old F receiving vancomycin/zosyn for treatment of left hand cellulitis. Patient has a history of intravenous drug use. Pertinent microbiologic data includes: Blood cultures pending, finger culture pending. No previous culture data. Mild leukocytosis, afebrile. Plan Vancomycin * Random level 11.6 mcg/mL * Maintenance dose: 1250 mg IV every 12 hours * Regimen is predicts ssAUC 557 mg/L.hr with 99% probability * Additional level in 2-3 days if vancomycin continued. Pharmacy will continue to follow and will adjust dose/frequency as necessary. Thank you. Pharmacy has transitioned to AUC monitoring for vancomycin. AUC/SHAWNEE is the preferred PK/PD target and is associated with decreased risk of nephrotoxicity compared to traditional trough targets.
--- NOTE | 2023-10-14 14:52 | Hospitalist Progress Note ---
Date of Service October 14, 2023 Assessment & Plan (1) Cellulitis of hand, left: (2) MSSA (methicillin susceptible Staphylococcus aureus) septicemia: Plan: 32-year-old female with no significant past medical history ongoing daily use of IV methamphetamines comes with left hand infection. MSSA bacteremia Cellulitis of left hand Patient is a 32-year-old female who presented to the hospital after a cardboard injury after left ring finger 4 out of 4 blood cultures are positive for Staph aureus History of use of IV methamphetamines as well Currently on Zosyn and vancomycin. Awaiting identification and final culture of the gram-positive cocci in clusters. Transthoracic echocardiogram ordered; patient will likely need NOEMI given her history of IV drug use Repeat blood culture sent Infectious disease consulted Orthopedics evaluated her finger; no operative interventions needed. IV drug abuse Ongoing with IV methamphetamines as per patient Monitor for any withdrawals DVT prophylax Lovenox Disposition MedSurg Full code Please note the above document was generated using voice recognition software. It may contain grammatical, syntax or spelling errors. Any formal questions or concerns about the content, text or information contained within the body of this dictation should be directly addressed to the provider for clarification Admission and Anticipated Discharge Date Admission Date: October 13, 2023 Subjective Patient seen and examined at bedside. She reports that the cellulitis on the hand is improving. She denies fever or chills. Review of Systems Review of Systems: All systems reviewed & are unremarkable except as noted in Subjective Physical Exam Physical Exam: General- Not in distress Head- atraumatic Eyes- PERRL. ENT- oropharynx clear Neck- supple, no JVD. Lungs- clear to auscultation , no wheezing or crackles. Heart- regular rhythm; no murmur, no gallop. Abdomen- normal bowel sounds, soft, nontender, no distension. Extremities-improvement in erythema on the left ring finger. Healing laceration near the PIP joint. Neuro- alert, oriented x 3; PERRL, no facial palsy; no dysarthria; moves extremities. Results & Data Results & Data Vital Signs (Past 12 Hours) Vital Signs Temp Pulse Resp BP Pulse Ox O2 Del Method 10/14/23 07:52 Room Air 10/14/23 07:20 36.7 C 96 H 16 117/80 99 Room Air Laboratory Results Laboratory Results WBC 5.56 K/ul (4.8-10.8) 10/14/23 13:06 RBC 4.86 M/uL (4.20-5.40) 10/14/23 13:06 Hgb 13.2 g/dl (12.0-16.0) 10/14/23 13:06 Hct 41.0 % (37.0-47.0) 10/14/23 13:06 MCV 84.4 fL (80.0-100.0) 10/14/23 13:06 MCH 27.2 pg (25.0-34.0) 10/14/23 13:06 MCHC 32.2 g/dL (32.0-36.0) 10/14/23 13:06 RDW Std Deviation 45.6 fL (36.4-46.3) 10/14/23 13:06 RDW Coeff of Amarilys 15.0 % (11.5-14.5) H 10/14/23 13:06 Plt Count 260 K/uL (130-400) 10/14/23 13:06 MPV 11.3 fL (9.4-12.4) 10/14/23 13:06 Immature Gran % (Auto) 0.2 % 10/14/23 13:06 Neut % (Auto) 59.8 % 10/14/23 13:06 Lymph % (Auto) 21.6 % 10/14/23 13:06 Peach % (Auto) 9.4 % 10/14/23 13:06 Eos % (Auto) 7.2 % 10/14/23 13:06 Baso % (Auto) 1.8 % 10/14/23 13:06 Neut # (Auto) 3.33 K/uL (1.40-6.50) 10/14/23 13:06 Lymph # (Auto) 1.20 K/uL (1.20-3.40) 10/14/23 13:06 Peach # (Auto) 0.52 K/uL (0.11-0.59) 10/14/23 13:06 Eos # (Auto) 0.40 K/uL (0.00-0.50) 10/14/23 13:06 Baso # (Auto) 0.10 K/uL (0.00-0.20) 10/14/23 13:06 Immature Gran # (Auto) 0.01 K/uL (0.01-0.20) 10/14/23 13:06 ESR 29 mm/hr (0-20) H 10/12/23 23:23 Sodium 138 mmol/L (136-145) 10/14/23 13:06 Potassium 3.9 mmol/L (3.5-5.1) 10/14/23 13:06 Chloride 105 mmol/L (98-107) 10/14/23 13:06 Carbon Dioxide 25 mmol/L (21-32) 10/14/23 13:06 Anion Gap 8 (3-11) 10/14/23 13:06 BUN 10 mg/dl (6-23) 10/14/23 13:06 Creatinine 0.90 mg/dl (0.6-1.2) 10/14/23 13:06 Est Cr Clr Drug Dosing 79.4 ml/min 10/14/23 13:06 Est GFR ( Amer) 96.7 ml/min 10/14/23 13:06 Est GFR (Non-Af Amer) 83.4 ml/min 10/14/23 13:06 BUN/Creatinine Ratio 11.1 (10-20) 10/14/23 13:06 Glucose 76 mg/dl (70-99(Fasting)) 10/14/23 13:06 Lactate 1.3 mmol/L (0.4-2.0) 10/12/23 23:30 Calcium 9.2 mg/dl (8.6-10.3) 10/14/23 13:06 Magnesium 1.8 mg/dl (1.7-2.4) 10/14/23 13:06 Total Bilirubin 0.6 mg/dl (0.2-1.0) 10/12/23 23:23 Direct Bilirubin 0.1 mg/dl (0-0.2) 10/12/23 23:23 AST 14 U/L (13-39) 10/12/23 23:23 ALT 14 U/L (7-52) 10/12/23 23:23 Alkaline Phosphatase 86 U/L (34-104) 10/12/23 23:23 Total Creatine Kinase 80 U/L (26-192) 10/12/23 23:23 C-Reactive Protein 5.74 mg/dl (0-0.5) H 10/12/23 23:23 Total Protein 6.9 gm/dl (6.0-8.3) 10/12/23 23:23 Albumin 4.0 gm/dl (3.4-5.0) 10/12/23 23:23 Procalcitonin < 0.05 ng/ml (0-0.5) 10/12/23 23:23 Urine Color Yellow 10/13/23 02:55 Urine Appearance Clear (Clear) 10/13/23 02:55 Urine pH 6.5 (4.5-7.5) 10/13/23 02:55 Ur Specific Fenton 1.022 (1.000-1.030) 10/13/23 02:55 Urine Protein Negative (Negative) 10/13/23 02:55 Urine Glucose (UA) Negative (Negative) 10/13/23 02:55 Urine Ketones Negative (Negative) 10/13/23 02:55 Urine Blood Negative (Negative) 10/13/23 02:55 Urine Nitrite Negative (Negative) 10/13/23 02:55 Urine Bilirubin Negative (Negative) 10/13/23 02:55 Urine Urobilinogen Negative (Negative) 10/13/23 02:55 Ur Leukocyte Esterase Negative (Negative) 10/13/23 02:55 Random Vancomycin 11.6 mcg/ml (10-20) 10/14/23 13:06 Urine Opiates Screen Neg (Neg) 10/13/23 02:55 Ur Methadone, Qual Neg (Neg) 10/13/23 02:55 Urine Barbiturates Neg (Neg) 10/13/23 02:55 Ur Phencyclidine (PCP) Neg (Neg) 10/13/23 02:55 U Amphetamin/Meth Scrn Pos (Neg) H 10/13/23 02:55 MDMA (Ecstasy) Screen Pos (Neg) H 10/13/23 02:55 U Benzodiazepines Scrn Neg (Neg) 10/13/23 02:55 Ur Cocaine Metabolite Pos (Neg) H 10/13/23 02:55 U Marijuana (THC) Screen Neg (Neg) 10/13/23 02:55 Hepatitis A IgM Ab NON-REACTIVE (NON-REACTIVE) 10/12/23 23:23 Hep Bs Antigen NON-REACTIVE (NON-REACTIVE) 10/12/23 23:23 Hep Bs Ag Confirmation TNP 10/12/23 23:23 Hep B Core IgM Ab NON-REACTIVE (NON-REACTIVE) 10/12/23 23:23 Hepatitis C Ab (EIA) NON-REACTIVE (NON-REACTIVE) 10/12/23 23:23 Staphylococcus sp PCR DETECTED (NotDetected) A 10/12/23 23:23 Staph aureus (PCR) DETECTED (NotDetected) A 10/12/23 23:23 mecA/C & MREJ Resist Gene MRSA Not Detected (NotDetected) 10/12/23 23:23 Bld Cult ID Panel PCR See PCR Comment (NotDetected) 10/12/23 23:23 Impressions Extremity Venous Study 10/12/23 22:03 Exam(s): US VENOUS LEFT UPPER EXTREMITY EXAM: US Duplex Left Upper Extremity Veins CLINICAL HISTORY: Reason for exam: pain/swelling TECHNIQUE: Real-time duplex ultrasound scan of the left upper extremity veins integrating B-mode two-dimensional vascular structure, Doppler spectral analysis, color flow Doppler imaging and compression. COMPARISON: No relevant prior studies available. FINDINGS: Deep veins: Unremarkable. No DVT in the internal jugular, subclavian, axillary, or brachial veins. The veins demonstrate normal color flow, are normally compressible, with normal phasic flow and/or augmentation response. Superficial veins: Unremarkable. No thrombus in the visualized basilic and cephalic veins. Soft tissues: No acute findings. IMPRESSION: Negative left upper extremity duplex venous ultrasound. Electronically signed by: Rayshawn Florez MD 10/13/23 02:17 AM Hand X-Ray 10/12/23 22:03 XR hand LT min 3V routine CLINICAL HISTORY: IVDU, infx, 4th finger the worst. Left hand swelling. COMPARISON STUDY: None. FINDINGS: Soft tissue swelling within the left hand most pronounced within the fourth finger. No radiopaque foreign bodies. No soft tissue gas identified. No bony destructive changes. No fracture or dislocation within the left hand. IMPRESSION: 1. Diffuse soft tissue swelling within the left hand. 2. No underlying bony abnormality. ACT 112: Negative or not required by law. Electronically signed by: Andrade Fisher M.D. 10/13/2023 7:47 AM
[2023-10-15] MEDS: PIPERACILLIN/TAZOBACTAM 4.5 GM in DEXTROSE 5% MINI-B 100 ML IV SCH ×2 (01:07→07:45)
[2023-10-15] MEDS: ACETAMINOPHEN 325 MG TAB PO PRN (03:51)
[2023-10-15] MEDS: VANCOMYCIN HCL 1,250 MG in SODIUM CHLORIDE 0.9% 250 ML IV SCH (06:06)
[2023-10-15] MEDS: NICOTINE 21 MG/24 HR TDSY TD SCH (06:07)
[2023-10-15] MEDS: ENOXAPARIN INJ 40 MG/0.4 ML SYR SQ SCH (07:45)
[2023-10-15 08:14] LABS: Basophils # (auto) 0.08 K/uL (0.00-0.20); Basophils % (auto) 1.2 %; Eosinophils # (auto) 0.76 K/uL (0.00-0.50); Eosinophils % (auto) 11.2 %; Hematocrit (blood only) 38.1 % (37.0-47.0); Hemoglobin 12.1 g/dl (12.0-16.0); Immature Granulocytes # (auto) 0.02 K/uL (0.01-0.20); Immature Granulocytes % (auto) 0.3 %; Lymphocytes # (auto) 2.04 K/uL (1.20-3.40); Mean Corpuscular Hemoglobin 26.7 pg (25.0-34.0); Mean Corpuscular Hgb Conc 31.8 g/dL (32.0-36.0); Mean Corpuscular Volume 83.9 fL (80.0-100.0); Monocytes # (auto) 0.76 K/uL (0.11-0.59); Monocytes % (auto) 11.2 %; Neutrophils # (auto) 3.13 K/uL (1.40-6.50); Neutrophils % (auto) 46.1 %; Platelet Count 279 K/uL (130-400); RDW Coefficient of Variation 14.9 % (11.5-14.5); RDW Standard Deviation 45.2 fL (36.4-46.3); Red Blood Count 4.54 M/uL (4.20-5.40); White Blood Count 6.79 K/ul (4.8-10.8)
[2023-10-15] MEDS: ceFAZolin 2000MG 2,000 MG/15 ML SYR IV SCH ×3 (08:20→23:49)
[2023-10-15 08:37] LABS: BUN Creatinine Ratio 12.4 (10-20); Calcium 8.9 mg/dl (8.6-10.3); Creatinine Clr Calc Pharmacy 80.3 ml/min; Est GFR (Non-African American) 84.6 ml/min; Potassium 3.6 mmol/L (3.5-5.1)
--- NOTE | 2023-10-15 15:14 | Hospitalist Progress Note ---
Date of Service October 15, 2023 Assessment & Plan (1) Cellulitis of hand, left: (2) MSSA (methicillin susceptible Staphylococcus aureus) septicemia: Plan: 32-year-old female with no significant past medical history ongoing daily use of IV methamphetamines comes with left hand infection. MSSA bacteremia Cellulitis of left hand Patient is a 32-year-old female who presented to the hospital after a cardboard injury on left ring finger 4 out of 4 blood cultures are positive for MSSA History of use of IV methamphetamines as well Repeat blood culture no growth in 24 hours Transthoracic echono vegetation Will switch over to cefazolin 2 g every 8 hours. Plan for NOEMI tomorrow. Discussed with cardiology. N.p.o. from midnight Infectious disease consulted. Patient might benefit from once a day antibiotic like ceftriaxone to come to the [facility] for IV antibiotics. Await ID recommendation. Orthopedics evaluated her finger; no operative interventions needed. IV drug abuse Ongoing with IV methamphetamines as per patient Monitor for any withdrawals DVT prophylax Lovenox Disposition MedSur Full code Time spent evaluating patient, direct bedside care, chart review, placing orders, interpretation of diagnostic studies, discussion with consultants, patient, and family members, as well as other required patient management activities is 50-minutes Please note the above document was generated using voice recognition software. It may contain grammatical, syntax or spelling errors. Any formal questions or concerns about the content, text or information contained within the body of this dictation should be directly addressed to the provider for clarification Admission and Anticipated Discharge Date Admission Date: October 13, 2023 Subjective Patient seen and examined at bedside. She is comfortable; no fever or chills. Vital stable Review of Systems Review of Systems: All systems reviewed & are unremarkable except as noted in Subjective Physical Exam Physical Exam: General- Not in distress Head- atraumatic Eyes- PERRL. ENT- oropharynx clear Neck- supple, no JVD. Lungs- clear to auscultation , no wheezing or crackles. Heart- regular rhythm; no murmur, no gallop. Abdomen- normal bowel sounds, soft, nontender, no distension. Extremities-improvement in erythema on the left ring finger. Healing laceration near the PIP joint. Neuro- alert, oriented x 3; PERRL, no facial palsy; no dysarthria; moves extremities. Results & Data Results & Data Vital Signs (Past 12 Hours) Vital Signs Temp Pulse Resp BP Pulse Ox O2 Del Method 10/15/23 14:56 36.8 C 99 H 16 129/65 99 Room Air 10/15/23 08:46 36.6 C 96 H 16 117/77 99 Room Air Laboratory Results Laboratory Results WBC 6.79 K/ul (4.8-10.8) 10/15/23 07:48 RBC 4.54 M/uL (4.20-5.40) 10/15/23 07:48 Hgb 12.1 g/dl (12.0-16.0) 10/15/23 07:48 Hct 38.1 % (37.0-47.0) 10/15/23 07:48 MCV 83.9 fL (80.0-100.0) 10/15/23 07:48 MCH 26.7 pg (25.0-34.0) 10/15/23 07:48 MCHC 31.8 g/dL (32.0-36.0) L 10/15/23 07:48 RDW Std Deviation 45.2 fL (36.4-46.3) 10/15/23 07:48 RDW Coeff of Amarilys 14.9 % (11.5-14.5) H 10/15/23 07:48 Plt Count 279 K/uL (130-400) 10/15/23 07:48 MPV 11.0 fL (9.4-12.4) 10/15/23 07:48 Immature Gran % (Auto) 0.3 % 10/15/23 07:48 Neut % (Auto) 46.1 % 10/15/23 07:48 Lymph % (Auto) 30.0 % 10/15/23 07:48 Mccreary % (Auto) 11.2 % 10/15/23 07:48 Eos % (Auto) 11.2 % 10/15/23 07:48 Baso % (Auto) 1.2 % 10/15/23 07:48 Neut # (Auto) 3.13 K/uL (1.40-6.50) 10/15/23 07:48 Lymph # (Auto) 2.04 K/uL (1.20-3.40) 10/15/23 07:48 Mccreary # (Auto) 0.76 K/uL (0.11-0.59) H 10/15/23 07:48 Eos # (Auto) 0.76 K/uL (0.00-0.50) H 10/15/23 07:48 Baso # (Auto) 0.08 K/uL (0.00-0.20) 10/15/23 07:48 Immature Gran # (Auto) 0.02 K/uL (0.01-0.20) 10/15/23 07:48 ESR 29 mm/hr (0-20) H 10/12/23 23:23 Sodium 137 mmol/L (136-145) 10/15/23 07:48 Potassium 3.6 mmol/L (3.5-5.1) 10/15/23 07:48 Chloride 106 mmol/L (98-107) 10/15/23 07:48 Carbon Dioxide 25 mmol/L (21-32) 10/15/23 07:48 Anion Gap 6 (3-11) 10/15/23 07:48 BUN 11 mg/dl (6-23) 10/15/23 07:48 Creatinine 0.89 mg/dl (0.6-1.2) 10/15/23 07:48 Est Cr Clr Drug Dosing 80.3 ml/min 10/15/23 07:48 Est GFR ( Amer) 98.0 ml/min 10/15/23 07:48 Est GFR (Non-Af Amer) 84.6 ml/min 10/15/23 07:48 BUN/Creatinine Ratio 12.4 (10-20) 10/15/23 07:48 Glucose 82 mg/dl (70-99(Fasting)) 10/15/23 07:48 Lactate 1.3 mmol/L (0.4-2.0) 10/12/23 23:30 Calcium 8.9 mg/dl (8.6-10.3) 10/15/23 07:48 Magnesium 1.8 mg/dl (1.7-2.4) 10/14/23 13:06 Total Bilirubin 0.6 mg/dl (0.2-1.0) 10/12/23 23:23 Direct Bilirubin 0.1 mg/dl (0-0.2) 10/12/23 23:23 AST 14 U/L (13-39) 11/24/23 23:23 ALT 14 U/L (7-52) 10/12/23 23:23 Alkaline Phosphatase 86 U/L (34-104) 10/12/23 23:23 Total Creatine Kinase 80 U/L (26-192) 10/12/23 23:23 C-Reactive Protein 5.74 mg/dl (0-0.5) H 10/12/23 23:23 Total Protein 6.9 gm/dl (6.0-8.3) 10/12/23 23: Albumin 4.0 gm/dl (3.4-5.0) 10/12/23 23:23 Procalcitonin < 0.05 ng/ml (0-0.5) 10/12/23 23:23 Urine Color Yellow 10/13/23 02:55 Urine Appearance Clear (Clear) 10/13/23 02:55 Urine pH 6.5 (4.5-7.5) 10/13/23 02:55 Ur Specific [place] 1.022 (1.000-1.030) 10/13/23 02:55 Urine Protein Negative (Negative) 10/13/23 02:55 Urine Glucose (UA) Negative (Negative) 10/13/23 02:55 Urine Ketones Negative (Negative) 10/13/23 02:55 Urine Blood Negative (Negative) 10/13/23 02:55 Urine Nitrite Negative (Negative) 10/13/23 02:55 Urine Bilirubin Negative (Negative) 10/13/23 02:55 Urine Urobilinogen Negative (Negative) 10/13/23 02:55 Ur Leukocyte Esterase Negative (Negative) 10/13/23 02:55 Random Vancomycin 11.6 mcg/ml (10-20) 10/14/23 13:06 Urine Opiates Screen Neg (Neg) 10/13/23 02:55 Ur Methadone, Qual Neg (Neg) 10/13/23 02:55 Urine Barbiturates Neg (Neg) 10/13/23 02:55 Ur Phencyclidine (PCP) Neg (Neg) 10/13/23 02:55 U Amphetamin/Meth Scrn Pos (Neg) H 10/13/23 02:55 MDMA (Ecstasy) Screen Pos (Neg) H 10/13/23 02:55 U Benzodiazepines Scrn Neg (Neg) 10/13/23 02:55 Ur Cocaine Metabolite Pos (Neg) H 10/13/23 02:55 U Marijuana (THC) Screen Neg (Neg) 10/13/23 02:55 Hepatitis A IgM Ab NON-REACTIVE (NON-REACTIVE) 10/12/23 23:23 Hep Bs Antigen NON-REACTIVE (NON-REACTIVE) 10/12/23 23:23 Hep Bs Ag Confirmation TNP 10/12/23 23:23 Hep B Core IgM Ab NON-REACTIVE (NON-REACTIVE) 10/12/23 23:23 Hepatitis C Ab (EIA) NON-REACTIVE (NON-REACTIVE) 10/12/23 23:23 Staphylococcus sp PCR DETECTED (NotDetected) A 10/12/23 23:23 Staph aureus (PCR) DETECTED (NotDetected) A 10/12/23 23:23 mecA/C & MREJ Resist Gene MRSA Not Detected (NotDetected) 10/12/23 23:23 Bld Cult ID Panel PCR See PCR Comment (NotDetected) 10/12/23 23:23 Impressions Extremity Venous Study 10/12/23 22:03 Exam(s): US VENOUS LEFT UPPER EXTREMITY EXAM: US Duplex Left Upper Extremity Veins CLINICAL HISTORY: Reason for exam: pain/swelling TECHNIQUE: Real-time duplex ultrasound scan of the left upper extremity veins integrating B-mode two-dimensional vascular structure, Doppler spectral analysis, color flow Doppler imaging and compression. COMPARISON: No relevant prior studies available. FINDINGS: Deep veins: Unremarkable. No DVT in the internal jugular, subclavian, axillary, or brachial veins. The veins demonstrate normal color flow, are normally compressible, with normal phasic flow and/or augmentation response. Superficial veins: Unremarkable. No thrombus in the visualized basilic and cephalic veins. Soft tissues: No acute findings. IMPRESSION: Negative left upper extremity duplex venous ultrasound. Electronically signed by: Rayshawn Florez MD 10/13/23 02:17 AM Hand X-Ray 10/12/23 22:03 XR hand LT min 3V routine CLINICAL HISTORY: IVDU, infx, 4th finger the worst. Left hand swelling. COMPARISON STUDY: None. FINDINGS: Soft tissue swelling within the left hand most pronounced within the fourth finger. No radiopaque foreign bodies. No soft tissue gas identified. No bony destructive changes. No fracture or dislocation within the left hand. IMPRESSION: 1. Diffuse soft tissue swelling within the left hand. 2. No underlying bony abnormality. ACT 112: Negative or not required by law. Electronically signed by: Andrade Fisher M.D. 10/13/2023 7:47 AM
[2023-10-16] MEDS ORDERED: PROPOFOL IV EMULSION 10 MG/ML 20 ML VIAL IV ONE (07:03)
[2023-10-16] MEDS ORDERED: LIDOCAINE 2% 2 ML VIAL/AMP(20MG/ML) INFIL ONE (07:03)
[2023-10-16] MEDS ORDERED: BENZOCAINE/TETRACAIN/BUTAM 50 APPLN/5 GM CAN EXT ONE (07:09)
--- NOTE | 2023-10-16 07:24 | Anesthesiology Consultation ---
Date of Service October 16, 2023 Assessment & Plan (1) Encounter for pre-operative examination: Chart Review Chart Review: Acceptable Risk for Surgery and Patient NOT seen in Pre Admission Testing Consults Requested none History Surgery Operation Date: 10/16/23 07:30 Proposed Procedures p Transesophageal Echo w/Anesthesia - Samuel Licea DO Height/Weight Height: 5 ft 2 in Weight: 67.6 kg Allergies Allergy/AdvReac Type Severity Reaction Status Date / Time No Known Allergies Allergy Verified 10/12/23 22:37 Medications Home Medications Medication Instructions Recorded Confirmed Last Taken No Known Home Medications 10/12/23 10/12/23 Unknown Active Medications Generic Name Dose Route Start Last Admin Trade Name Freq PRN Reason Stop Dose Admin Acetaminophen 650 mg 10/13/23 07:44 10/15/23 03:51 Acetaminophen 325 Mg Tab PO 11/12/23 07:43 650 mg Q4H PRN Administration Pain or Fever Enoxaparin Sodium 40 mg 10/15/23 09:00 10/15/23 07:45 Enoxaparin Inj 40 Mg/0.4 Ml Syr SQ 11/14/23 08:59 Not Given QAM LEONIDAS Cefazolin Sodium 2,000 mg in 15 mls @ 3.75 mls/min 10/15/23 08:00 10/15/23 23:49 Ancef 2000mg IV 10/29/23 07:59 3.75 mls/min Q8H LEONIDAS Administration Miscellaneous 1 each 10/13/23 08:59 10/15/23 06:07 Remove Nicoderm Patch N/A 11/12/23 08:58 1 each DAILY@0859 LEONIDAS Administration Miscellaneous 1 each 10/14/23 08:59 10/15/23 07:44 Remove Nicoderm Patch N/A 11/13/23 08:58 1 each DAILY@0859 LEONIDAS Administration Nicotine 21 mg 10/13/23 14:30 10/15/23 06:07 Nicotine 21 Mg/24 Hr Tdsy TD 11/12/23 14:29 21 mg QAM LEONIDAS Administration Past Medical History Medical History (Updated 10/16/23 @ 07:23 by Carlos Mccauley MD) Encounter for pre-operative examination MSSA (methicillin susceptible Staphylococcus aureus) septicemia Cellulitis of hand, left Exercise / Class Metabolic Activity II 4-5 Yardwork/Stairs/Walk up hill Past Anesthesia History No Hx of Anesthesia Complications and No Family Hx of Anesthesia Complications Social History Smoking Status: Current every day smoker Smoking cigarettes per day: 20 cigarettes (a pack a day). Do You Dip or Chew Tobacco: No Hx Alcohol Use: No Hx Substance Use: Yes substance use type: methamphetamine Last Used Substance: Days (ago) Last Used Substance Other:: Used methamphetamine yesterday (10/12/23). Physical Exam Vital Signs Last Vital Signs Temp 36.7 C 10/16/23 07:14 Pulse 108 H 10/16/23 07:14 Resp 18 10/16/23 07:14 BP 124/76 10/16/23 07:14 Pulse Ox 99 10/16/23 07:14 O2 Del Method Room Air 10/16/23 07:14 Testing Laboratory Results 10/15/23 07:48 10/15/23 07:48 Urine Color Yellow 10/13/23 02:55 Urine Appearance Clear (Clear) 10/13/23 02:55 Urine pH 6.5 (4.5-7.5) 10/13/23 02:55 Ur Specific [place] 1.022 (1.000-1.030) 10/13/23 02:55 Urine Protein Negative (Negative) 10/13/23 02:55 Urine Glucose (UA) Negative (Negative) 10/13/23 02:55 Urine Ketones Negative (Negative) 10/13/23 02:55 Urine Nitrite Negative (Negative) 10/13/23 02:55 Ur Leukocyte Esterase Negative (Negative) 10/13/23 02:55 10/14/23 13:10 Aerobic Blood Culture - Preliminary Blood No growth in Aerobic bottle after 24 hours. Anaerobic Blood Culture - Final 10/14/23 12:51 Aerobic Blood Culture - Preliminary Blood No growth in Aerobic bottle after 24 hours. Anaerobic Blood Culture - Preliminary No growth in Anaerobic bottle after 24 hours. 10/12/23 23:30 Gram Stain - Final Finger Wound Culture - Final Staphylococcus aureus 10/12/23 23:23 Aerobic Blood Culture - Final Blood Staphylococcus aureus Anaerobic Blood Culture - Final Staphylococcus aureus 10/12/23 23:23 Aerobic Blood Culture - Final Blood Staphylococcus aureus Anaerobic Blood Culture - Final Staphylococcus aureus
--- NOTE | 2023-10-16 08:00 | Anesthesiology Progress Note ---
Date of Service October 16, 2023 Anesthesia Post Procedure Vital Signs Vital Signs: Temp Pulse Resp BP BP Pulse Ox O2 Del Method 10/16/23 07:14 36.7 C 108 H 18 124/76 99 Room Air 10/15/23 22:00 36.8 C 98 H 18 127/84 100 Room Air 10/15/23 20:43 36.8 C 107 H 16 136/91 97 Room Air 10/15/23 14:56 36.8 C 99 H 16 129/65 99 Room Air 10/15/23 08:46 36.6 C 96 H 16 117/77 99 Room Air Pain Intensity Left Hand: Pain Intensity: 3 Transfer of Care Handoff Completed per policy Notes Mental Status: alert / awake / arousable and participated in evaluation Patient Amnestic to Procedure: Yes Nausea / Vomiting: adequately controlled Pain: adequately controlled Airway Patency, RR, SpO2: stable & adequate BP & HR: stable & adequate Hydration State: stable & adequate Anesthetic Complications: no major complications apparent and Pt Satisfied with anesthetic care
[2023-10-16] MEDS: ENOXAPARIN INJ 40 MG/0.4 ML SYR SQ SCH (08:43)
[2023-10-16] MEDS: NICOTINE 21 MG/24 HR TDSY TD SCH (08:44)
[2023-10-16] MEDS: ceFAZolin 2000MG 2,000 MG/15 ML SYR IV SCH (08:45)
[2023-10-16 10:24] LABS: Basophils % (auto) 1.3 %; Eosinophils # (auto) 0.83 K/uL (0.00-0.50); Eosinophils % (auto) 10.5 %; Hematocrit (blood only) 39.8 % (37.0-47.0); Hemoglobin 13.1 g/dl (12.0-16.0); Immature Granulocytes # (auto) 0.02 K/uL (0.01-0.20); Immature Granulocytes % (auto) 0.3 %; Lymphocytes # (auto) 2.17 K/uL (1.20-3.40); Lymphocytes % (auto) 27.5 %; Mean Corpuscular Hemoglobin 27.1 pg (25.0-34.0); Mean Corpuscular Hgb Conc 32.9 g/dL (32.0-36.0); Mean Corpuscular Volume 82.2 fL (80.0-100.0); Mean Platelet Volume 10.7 fL (9.4-12.4); Monocytes # (auto) 0.45 K/uL (0.11-0.59); Monocytes % (auto) 5.7 %; Neutrophils # (auto) 4.33 K/uL (1.40-6.50); Neutrophils % (auto) 54.7 %; Platelet Count 324 K/uL (130-400); RDW Coefficient of Variation 14.9 % (11.5-14.5); RDW Standard Deviation 44.7 fL (36.4-46.3); Red Blood Count 4.84 M/uL (4.20-5.40)
[2023-10-16 10:41] LABS: BUN Creatinine Ratio 12.9 (10-20); Calcium 8.9 mg/dl (8.6-10.3); Creatinine Clr Calc Pharmacy 76.8 ml/min; Est GFR (African American) 92.9 ml/min; Est GFR (Non-African American) 80.2 ml/min; Potassium 3.8 mmol/L (3.5-5.1)
--- NOTE | 2023-10-16 12:40 | Infectious Disease Consult ---
Date of Service October 16, 2023 Telehealth Information I performed this visit using a real-time telehealth connection between my location and the patients location ([facility]). After connecting through interactive tele-video, patient was identified by name and date of and/or wristband check.Patient (or authorized healthcare fuels sales representative) was informed that this was a telemedicine visit and it was being conducted confidentially over secure lines. My office door was closed and no one else was present in the room with me.Patient (or authorized healthcare fuels sales representative) provided consent to proceed with the visit, expressed an understanding of privacy and security of the telemedicine visit, and gave permission to have a hospital fuels sales representative in the room in order to assist with the visit and to conduct portions of the visit, as needed. I informed the patient (or authorized healthcare fuels sales representative) that I reviewed their record and presented the opportunity for them to ask any questions regarding the visit today. The patient agreed to participate. Assessment & Plan (1) MSSA bacteremia: (2) Infection of left hand: Plan Assessment: 32-year-old female with no significant past medical history ongoing daily use of IV methamphetamines presented to [facility] on 10/12/2023 with left hand infection. At [facility], infectious work-up showed blood culture (+) MSSA in 4/4 bottles. Pt's Left finger wound culture also positive for MSSA. Xray of left hand negative for OM. TTE/NOEMI negative for vegetations. Diagnosed with MSSA bacteremia 2/2 to left finger injection site infection. Plan: - Discussed with Hospitalist, understanding that Cefazolin IV, Nafcillin/Oxacillin IV are preferred treatment regimens, given overwhelming concern for PICC abuse, we have decided to switch patient to Daptomycin 6 mg/kg IV q24 for discharge. Pt will go to facility daily for administration and this will not require PICC for appropriate treatment. Pt is agreeable with plan and understands necessity for it. - Recommend 2 weeks of IV antibiotics from first negative blood culture on 10/14/2023. END DATE: 10/28/2023. - Recommend CBC, CMP, and CK weekly. - we will sign off, no need for ID clinic appointment, recommend PCP appointment in 7-10 days after d/c, please call with issues, concerns, or questions. We will not actively monitor patient after sign off is completed. History of Present Illness History of Present Illness Reason for Consultation: MSSA bactermia 32-year-old female with no significant past medical history ongoing daily use of IV methamphetamines presented to [facility] on 10/12/2023 with left hand infection. At [facility], infectious work-up showed blood culture (+) MSSA in 4/4 bottles. Pt's Left finger wound culture also positive for MSSA. Xray of left hand negative for OM. TTE/NOEMI negative for vegetations. ID consulted for evaluation and management. Allergies Allergy/AdvReac Type Severity Reaction Status Date / Time No Known Allergies Allergy Verified 10/12/23 22:37 Home Medications Medication Instructions Recorded Confirmed Type No Known Home Medications 10/12/23 10/12/23 History Patient History Medical History (Updated 10/16/23 @ 12:54 by Richard Schmitz II, DO) Encounter for pre-operative examination MSSA (methicillin susceptible Staphylococcus aureus) septicemia Cellulitis of hand, left Social History Smoking Status: Current every day smoker Tobacco Type: Cigarettes Cigarettes Per Day: 20 cigarettes (a pack a day).; Second Hand Exposure: Yes; Do You Dip or Chew Tobacco: No; Hx Alcohol Use: No Hx Substance Use: Yes Last Used Substance: Days (ago) Last Used Substance Other:: Used methamphetamine yesterday (10/12/23). Preferred Language: Hungarian Communication Ability: Effective Pedicab Driver Required: No Beliefs That Will Affect Care: None Current Living Situation: Other Current Living Situation Comment: Lives with Friend. Feels Safe at Home: Declines to Answer Assistive Devices: None Review of Systems All ROS negative except for left finger pain which is improved. Physical Exam GEN: WNWD HEENT: WNL MUSC: Left hand 4th digit red and swollen with wound at site of injection. Results & Data Vital Signs (Past 12 Hours) Vital Signs Temp Pulse Resp BP Pulse Ox O2 Del Method 10/16/23 08:30 85 18 109/72 99 Room Air 10/16/23 08:15 99 H 18 109/71 99 Room Air 10/16/23 08:00 99 H 18 112/74 99 Room Air 10/16/23 07:14 36.7 C 108 H 18 124/76 99 Room Air Laboratory Results Blood culture on 10/12/2023 Blood Culture Aerobic Final 10/15/23 Organism 1 Staphylococcus aureus Sens Sensitivities to Follow S aureus RX M.I.C. --- --------- Clindamycin S <=0.5 Daptomycin S 1 Erythromycin S <=0.5 Oxacillin S <=0.25 Tetracycline S <=4 Trimeth/Sulfa S <=0.5/9.5 Vancomycin S 2 S = SENSITIVE I = INTERMEDIATE R = RESISTANT Blood Culture Anaerobic Final 10/15/23 Organism 1 Staphylococcus aureus Sens Sensitivities to Follow Left finger culture on 10/12/2023 Surface Wound Culture Final 10/15/23 Organism 1 Staphylococcus aureus Quantity Many Sens Sensitivities to Follow +MixWound Plus Low Counts of Probable Skin Nikia S aureus RX M.I.C. --- --------- Clindamycin S <=0.5 Daptomycin S <=0.5 Erythromycin S <=0.5 Oxacillin S <=0.25 Tetracycline S <=4 Trimeth/Sulfa S <=0.5/9.5 Vancomycin S 2 S = SENSITIVE I = INTERMEDIATE R = RESISTANT Blood culture on 10/14/2023 NGTD Diagnostic Findings Left Hand Xray on 10/12/2023 IMPRESSION: 1. Diffuse soft tissue swelling within the left hand. 2. No underlying bony abnormality. TTE on 10/14/2023 No vegetations NOEMI on 10/16/2023 No vegetations. Medications Administered Pt is currently on Cefazolin IV and will be switch to Daptomycin 6 mg/kg on d/c.
--- NOTE | 2023-10-16 15:39 | Discharge Summary ---
Date of Service October 16, 2023 Admission HPI Per Admitting Provider 32-year-old female with no significant past medical history ongoing daily use of IV methamphetamines comes with left hand infection. Patient states couple of days ago she cut from cardboard her left fourth digit and since yesterday left hand is swollen and painful. She is having painful movements of the left hand. Denies any fevers. Denies any chest pain or shortness of breath. Currently no headache. No blurred visions. No cough. Appetite is okay. No nausea vomiting. No abdominal pain. Normal bowel and bladder movements. No rash. Hemodynamics are stable. Past medical history. None Past surgical history. Denies any surgeries. Social history. Smokes 1 pack of cigarettes daily for more than 10 years. Denies alcohol. Does IV amphetamines daily Family history. Denies any family history Admission Exam Per Admitting Provider General- Not in distress Head- atraumatic Eyes- PERRL. ENT- oropharynx clear Neck- supple, no JVD. Lungs- clear to auscultation , no wheezing or crackles. Heart- regular rhythm; no murmur, no gallop. Abdomen- normal bowel sounds, soft, nontender, no distension. Extremities- left hand is swollena nd erythematous and painful movements. fourth digit small cut seen. Neuro- alert, oriented x 3; PERRL, no facial palsy; no dysarthria; moves extremities Principal Diagnosis MSSA bacteremia Cellulitis of left hand Discharge Exam General- Not in distress Head- atraumatic Eyes- PERRL. ENT- oropharynx clear Neck- supple, no JVD. Lungs- clear to auscultation , no wheezing or crackles. Heart- regular rhythm; no murmur, no gallop. Abdomen- normal bowel sounds, soft, nontender, no distension. Extremities-improvement in erythema on the left ring finger. Healing laceration near the PIP joint. Neuro- alert, oriented x 3; PERRL, no facial palsy; no dysarthria; moves extrem ities. Discharge Data Allergies Allergy/AdvReac Type Severity Reaction Status Date / Time No Known Allergies Allergy Verified 10/12/23 22:37 Consultations 10/13/23 00:14 ED Decision to Admit Stat 10/13/23 08:00 Consult Orthopedic Surgery Routine 10/13/23 16:48 Consult Infectious Diseases Routine Procedures Performed Operation Date: 10/16/23 07:30 Actual Procedures p Echo Transesophageal - Samuel Licea DO s Echo Doppler Complete - Samuel Licea DO s Echo Color Flow - Samuel Licea DO Ordered Studies 10/12/23 22:03 US venous doppler UE LT Stat Hospital Course (1) Cellulitis of hand, left: (2) MSSA (methicillin susceptible Staphylococcus aureus) septicemia: 32-year-old female with no significant past medical history ongoing daily use of IV methamphetamines comes with left hand infection. MSSA bacteremia Cellulitis of left hand Patient is a 32-year-old female who presented to the hospital after a cardboard injury on left ring finger 4 out of 4 blood cultures are positive for MSSA History of use of IV methamphetamines as well Repeat blood culture no growth in 48 hours Transthoracic echono vegetation TEEno vegetation Patient was treated with IV vancomycin initially; switched over to cefazolin for MSSA. Discussion was done with case management about PICC line placement and home health. Difficult to get approval for home health agencies for PICC line management due to history of IV drug use Discussion was done with infectious disease. Patient was discharged on daptomycin to be given daily at the [facility]. Patient to follow-up with a new primary care provider ( Dr. Davies) on Sunday( October) Please note the above document was generated using voice recognition software. It may contain grammatical, syntax or spelling errors. Any formal questions or concerns about the content, text or information contained within the body of this dictation should be directly addressed to the provider for clarification Total Time Total Time Spent Total Time Spent (In Minutes): 45 Total Time Includes: Examination of the Patient, Discharge Planning, Medication Reconciliation, Communication With Other Providers and Other Discharge Plan Discharge Items Patient Disposition: Home - Self-Care Reason For Visit: LEFT HAND INFECTION Discharge Diagnosis: MSSA bacteremia Left hand cellulitis Condition on Discharge: Fair Activity: Resume your previous activity Non-emergency contact: Primary Care Provider Call non-emergency contact if: you have any medication questions and your symptoms worsen Follow-up/Referrals: PCP,NO [Primary Care Provider] - Diet: Regular Addtl Attending Provider Instructions: You were admitted to the hospital due to left ring finger infection and blood infection due to Staph aureus. You need IV antibiotics for 2 weeks till October 27, 2023. Please come to [facility] for the IV antibiotics. You will have blood work done on Sunday. An appointment has been made with Dr. Davies in [facility] office at 9 AM On October 22, 2023. Pending Studies at Discharge: No Stand-Alone Forms: My [facility], Work/School Release, Smoking Cessation Medications and DC Order Prescriptions: No Action No Known Home Medications Discharge Orders: Discharge Order (Routine); Ordered 10/16/23 Ordered By: Juvenal Dixon Admission Data Admit Date/Time: 10/13/23 01:41 Attending Provider: Juvenal Dixon Admit Provider: Skinny Matamoros Primary Care Provider: PCP,NO Other Providers: Skinny Matamoros; Lalito Azul; Niko Rivas; Anthony Bella; Orlando Menjivar I.; Richard Schmitz II; Stefani Roberson; Tre Carmona; Rayshawn Gaines; Jennie Tucker Other Interventions: Discharge Summary Assessment (RN) Last Done: 10/16/23 14:40
[2023-10-17 12:12] LABS: Amphetamine Urine, Confirm >15000 ng/mL (<250); Cocaine, Urine 508 ng/mL (<100); MDA negative; MDEA negative; MDMA (Ecstasy) Urine, Confirm negative; Methamphetamine, Ur Confirm >15000 ng/mL (<250)
--- NOTE | 2023-10-19 14:42 | Communication Note ---
Date of Service: October 19, 2023 Informed from [facility] that patient won't be completing her antibiotics treatment due to daily iv stick. Discussed with patient over the phone, she reported that she wont be coming back to [facility] for iv antiboitics. She denies any fever, chills or weakness. She report that she is doing well. Discussed about importance of medical compliance and risks of foregoing iv antibiotics for MSSA bacteremia. I discussed that risks include recurrence of bacteremia, endocarditis, septic shock and . She verbalized understanding. I discussed the case with Dr. Scales from Infectious disease. He recommended oral Linezolid as a inferior alterative. Prescription is sent to patient's pharmacy at [facility]. Discussed with pharmacist.
== END 2023-10-16 15:11 | disposition home or self-care (01) | DRG 872 ==
LOC: ED 21:45 → 3W 10-13 01:41